=== PATIENT | female | born 1960 | race Caucasian/White ===

== ENCOUNTER 2023-06-16 22:30 | Emergency (ER) | payer MEDICAID, OTHER ==
[~2023-06-16] VITALS: Ht 162.6 cm; Wt 54.4 kg
[~2023-06-16 22:30] MED LIST: AMIT-256 PO; CHOL20002 PO; ENAL1TAB47 PO; FLUT50SP NAS; GABA-1250 PO; HYDR-4798 PO; IBUP-1455 PO; LIDO1PAD55 TOP; OMEP1CAP70 PO; ONDA-188 PO; SENN-105 PO; TEMA7.5C11 PO; TIZA1TAB20 PO; TRAZ1TAB12 PO
[2023-06-16 22:50] VITALS: PULSE 88; RESP 15; O2SAT 96
[2023-06-16 23:24] LABS: Basophils # (auto) 0 10 ^3/uL (0-0.2); Basophils % (auto) 0.3 % (0.0-2.0); Eosinophils # (auto) 0 10 ^3/uL (0-0.8); Eosinophils % (auto) 0.8 % (0.0-7.0); Hematocrit 28.6 % (36.0-46.0); Hemoglobin 9.4 g/dL (12.2-16.2); Lymphocytes % (auto) 18.2 % (10.0-50.0); Mean Corpuscular Hemoglobin 27.4 pg (28.0-32.0); Mean Corpuscular Volume 82.9 fL (80.0-100.0); Monocytes # (auto) 0.5 10 ^3/uL (0-1.3); Neutrophils # (auto) 4.1 10 ^3/uL (1.6-8.6); Neutrophils % (auto) 72.7 % (37.0-80.0); Nucleated Red Blood Cells % 0.1 %; Red Blood Cells 3.45 10^6/uL (4.0-5.20); Red Cell Distribution Width 16.7 % (11.8-14.3); White Blood Cell 5.7 10^3/uL (4.4-10.8)
[2023-06-16 23:35] LABS: INR 1.09 (0.9-1.15); Partial Thromboplastin Time 24.9 SEC (24.5-34.5); Prothrombin Time 11.5 sec (9.3-11.8)
[2023-06-16 23:38] LABS: Alanine Aminotransferase 22 U/L (7-40); Albumin 4.5 g/dL (3.2-4.8); Alkaline Phosphatase 99 U/L (46-116); Anion Gap 9 (5-15); Aspartate Aminotransferase 28 U/L (13-40); BUN/Creatinine Ratio 23.3 (10.0-20.0); Bilirubin, Total 0.3 mg/dL (0.2-1.0); Blood Urea Nitrogen 21 mg/dL (9-23); Calcium 9.6 mg/dL (8.7-10.4); Carbon Dioxide 20 mmol/L (20-30); Chloride 103 mmol/L (98-107); Glucose 117 mg/dL (74-106); Potassium 4.3 mmol/L (3.5-5.1); Sodium 132 mmol/L (136-145); Total Protein 8.5 g/dL (5.7-8.2)
[2023-06-16] MEDS: IOHEXOL 350 MG/ML 100ML IJ ONE (23:38)
[2023-06-17 00:29] LABS: Urine Bacteria None Seen /hpf (None Seen)
[2023-06-17 00:46] LABS: Urine Blood Negative /uL (Negative); Urine Clarity Clear (Clear); Urine Color Light-Yellow (Yellow); Urine Protein, UAD Negative (Negative); Urine Specific Gravity 1.046 (1.001-1.035); Urine Urobilinogen Normal (Negative); Urine WBC <1 /hpf (0 - 5); Urine pH 6.5 (5.0-9.0)
[2023-06-17 01:35] LABS: Amphetamine Screen, Urine Neg (NEGATIVE); Barbiturate Scree,Urine Neg (NEGATIVE); Benzodiazephine Screen, Urine Neg (NEGATIVE); Cocaine Screen, Urine Neg (NEGATIVE); Opiate Scree,Urine Neg (NEGATIVE); Phencyclidine Screen, Urine Neg (NEGATIVE)
[2023-06-17 01:36] LABS: Cannabinoid Screen, Urine Neg (NEGATIVE)
[2023-06-17] MEDS: levETIRAcetam 1000 mg/100ml 100 ML IV ONE (02:49)
[2023-06-17 05:59] VITALS: TEMP 98.8; O2SAT 97
[2023-06-17] MEDS: MORPHINE SULFATE INJ 2 MG/ml SYRG ONE (06:14)
[2023-06-17] MEDS: ONDANSETRON HCL 4 MG/2 ML VIAL ONE (06:14)
[2023-06-17 06:15] VITALS: BP 134/63; PULSE 64; RESP 18
[2023-06-17] MEDS: MORPHINE SULFATE INJ 2 MG/ml SYRG IV ONE (06:15)
[2023-06-17] MEDS: ONDANSETRON HCL 4 MG/2 ML VIAL IV ONE (06:16)
== END 2023-06-17 06:16 | disposition short-term general hospital (02) ==
LOC: EDBD 22:30 → ER 22:30
DX: D49.6 Neoplasm of unspecified behavior of brain (principal); G93.6 Cerebral edema; F10.90 Alcohol use, unspecified, uncomplicated; Z98.890 Other specified postprocedural states; Z79.899 Other long term (current) drug therapy; Z86.2 Personal history of diseases of the blood and blood-forming organs and certain disorders involving the immune mechanism; Y90.0 Blood alcohol level of less than 20 mg/100 ml
CPT/HCPCS: 36415; 51702; 70450; 70496; 71045; 80053; 80307; 81001; 82962; 83605; 84484; 85025; 85379; 85610; 85730; 87040; 93005; 96374; 96375; 99285; J1953; J2270; J2405; Q9967